=== PATIENT | female | born 1970 ===

== ENCOUNTER 2022-06-01 14:41 | Inpatient (IN) ==
[2022-06-01] MEDS ORDERED: cloNIDine 0.1 MG TABLET PO STA (16:09)
[2022-06-01] MEDS ORDERED: niCARdipine 25 MG/10 ML VIAL IV ONE (16:41)
[2022-06-01] MEDS: niCARdipine INJ 25 MG in SODIUM CHLORIDE 0.9% 240 ML IV PRN ×2 (17:23→22:04)
[2022-06-01] MEDS ORDERED: MORPHINE 2 MG/1 ML SYRINGE ONE (19:32)
[2022-06-01] MEDS ORDERED: ONDANSETRON 4 MG/2 ML VIAL ONE (19:32)
[2022-06-01] MEDS ORDERED: MORPHINE 2 MG/1 ML SYRINGE IV STA (19:33)
[2022-06-01] MEDS ORDERED: ONDANSETRON 4 MG/2 ML VIAL IV STA (19:33)
[2022-06-01 19:38] LABS: Basophils # 0.1 10*3/uL (0.0-0.2); Basophils % 0.6 % (0.0-0.8); Eosinophils # 0.1 10*3/uL (0.0-0.87); Eosinophils % 1.3 % (0.00-10.9); Hematocrit 40.8 VOL% (35.7-47.0); Immature Granulocytes % 0.2 %; Immature Granulocytes Absolute 0.02 #; Lymphocytes # 5.3 10*3/uL (1.4-4.0); Lymphocytes % 59.1 % (21.3-54.2); Mean Corpuscular HGB Conc 34.3 GM/DL (32-36); Mean Corpuscular Volume 92.9 FL (87-102); Mean Platelet Volume 11.2 FL (9.6-12.0); Monocytes # 0.4 10*3/uL (0.11-0.8); Monocytes % 4.3 % (1.7-12.7); Neutrophils % 34.5 % (38.7-73.9); Platelet Count 211 T/CUMM (130-400); Red Blood Count 4.39 MC/CUMM (3.8-5.5); Red Cell Distribution Width 12.4 % (9.3-17.3); White Blood Count 8.9 T/CUMM (4-12)
[2022-06-01 19:48] LABS: RBC,Urine <1 /HPF (0-4); Squamous Epithelial Cell,Urine Occasional /HPF (0-10)
[2022-06-01 19:50] LABS: Bilirubin,Urine Negative (Negative); Blood, Urine Trace mg/dL (Negative); Glucose,Urine (UA) Negative (Negative); Ketones,Urine Negative (Negative); Nitrite,Urine Negative (Negative); Protein,Urine 30 mg/dL (Negative); Urine Appearance Clear (Clear); Urine Color Yellow (Yellow); Urine Specific Gravity 1.015 (1.001-1.035); Urine Urobilinogen 0.2 eU/dL (<2.0)
[2022-06-01 19:58] LABS: Albumin 3.3 G/DL (3.4-5.0); Bilirubin,Total 0.8 MG/DL (0.20-1.00); Calcium 10.3 MG/DL (8.5-10.1); Osmolality,Calculated 279.5 MOS/KG (273-304); Potassium 3.3 MMOL/L (3.5-5.1); Total Protein 7.6 G/DL (6.4-8.2)
[2022-06-01 19:59] LABS: Barbiturates Screen,Urine Negative (Negative); Benzodiazepines Screen,Urine Negative (Negative); Cannabinoid Screen,Urine Negative (Negative); Opiate Screen,Urine Negative (Negative); Phencyclidine Screen,Urine Negative (Negative)
[2022-06-01 20:06] LABS: Eosinophils 3 % (0-10); Lymphocytes 53 % (20-55); Platelet Estimate Normal; Total Cells Counted 100
[2022-06-01] MEDS ORDERED: amLODIPine 5 MG TABLET PO STA (20:08)
[2022-06-01] MEDS ORDERED: hydrALAZINE 20 MG/1 ML VIAL IV STA (20:36)
[2022-06-01] MEDS ORDERED: ALBUTEROL 2.5 MG/3 ML NEB RESP TX PRN (21:26)
[2022-06-01] MEDS ORDERED: FUROSEMIDE 40 MG/4 ML VIAL IV ONE (21:37)
[2022-06-01] MEDS ORDERED: ROSUVASTATIN 10 MG TABLET PO SCH (22:00)
[2022-06-01] MEDS: ESCITALOPRAM 10 MG TABLET PO SCH (23:10)
[2022-06-01] MEDS ORDERED: POTASSIUM CHLORIDE 20 MEQ TABLET PO ONE (23:25)
[2022-06-02] MEDS: ONDANSETRON 4 MG/2 ML VIAL IV PRN ×2 (02:28→08:53)
[2022-06-02 05:10] LABS: Basophils # 0.1 10*3/uL (0.0-0.2); Basophils % 0.6 % (0.0-0.8); Eosinophils # 0.1 10*3/uL (0.0-0.87); Hematocrit 41.4 VOL% (35.7-47.0); Hemoglobin 14.1 GM/DL (12.0-16.0); Immature Granulocytes % 0.3 %; Immature Granulocytes Absolute 0.02 #; Lymphocytes # 2.6 10*3/uL (1.4-4.0); Lymphocytes % 33.5 % (21.3-54.2); Mean Corpuscular HGB Conc 34.1 GM/DL (32-36); Mean Corpuscular Volume 93.2 FL (87-102); Mean Platelet Volume 11.2 FL (9.6-12.0); Monocytes # 0.4 10*3/uL (0.11-0.8); Monocytes % 4.8 % (1.7-12.7); Neutrophils % 59.8 % (38.7-73.9); Platelet Count 218 T/CUMM (130-400); Red Blood Count 4.44 MC/CUMM (3.8-5.5); Red Cell Distribution Width 12.4 % (9.3-17.3); White Blood Count 7.7 T/CUMM (4-12)
[2022-06-02 05:39] LABS: Albumin 3.3 G/DL (3.4-5.0); Bilirubin,Total 1.1 MG/DL (0.20-1.00); Calcium 10.2 MG/DL (8.5-10.1); Osmolality,Calculated 281.7 MOS/KG (273-304); Potassium 3.6 MMOL/L (3.5-5.1); Total Protein 8.1 G/DL (6.4-8.2)
[2022-06-02] MEDS: POTASSIUM CHLORIDE 10 MEQ TABLET PO SCH (08:59)
[2022-06-02] MEDS: HydrOXYzine PAMOATE 25 MG CAPSULE PO SCH (09:00)
[2022-06-02] MEDS ORDERED: amLODIPine 10 MG TABLET PO SCH (09:00)
[2022-06-02] MEDS: cloNIDine 0.1 MG TABLET PO SCH (09:00)
[2022-06-02] MEDS: PANTOPRAZOLE 40 MG TABLET PO SCH (09:03)
[2022-06-02] MEDS: ENOXAPARIN 40 MG/0.4 ML SYRINGE SUBCUT SCH (09:05)
[2022-06-02] MEDS: hydrALAZINE 25 MG TABLET PO SCH ×2 (17:19→21:35)
[2022-06-02] MEDS ORDERED: ESCITALOPRAM OXALATE 20 MG PO SCH (21:00)
[2022-06-02] MEDS: ESCITALOPRAM 10 MG TABLET PO SCH (21:35)
[2022-06-03 05:39] LABS: Basophils % 0.6 % (0.0-0.8); Eosinophils # 0.1 10*3/uL (0.0-0.87); Eosinophils % 1.5 % (0.00-10.9); Hematocrit 41.8 VOL% (35.7-47.0); Hemoglobin 13.6 GM/DL (12.0-16.0); Lymphocytes # 3.2 10*3/uL (1.4-4.0); Lymphocytes % 45.4 % (21.3-54.2); Mean Corpuscular HGB Conc 32.5 GM/DL (32-36); Mean Corpuscular Volume 97.9 FL (87-102); Mean Platelet Volume 11.6 FL (9.6-12.0); Monocytes # 0.5 10*3/uL (0.11-0.8); Monocytes % 6.8 % (1.7-12.7); Neutrophils % 45.7 % (38.7-73.9); Platelet Count 201 T/CUMM (130-400); Red Blood Count 4.27 MC/CUMM (3.8-5.5); Red Cell Distribution Width 12.6 % (9.3-17.3); White Blood Count 7.1 T/CUMM (4-12)
[2022-06-03 06:20] LABS: Bilirubin,Total 0.9 MG/DL (0.20-1.00); Calcium 9.9 MG/DL (8.5-10.1); Osmolality,Calculated 283.5 MOS/KG (273-304); Potassium 3.4 MMOL/L (3.5-5.1); Total Protein 7.5 G/DL (6.4-8.2)
[2022-06-03] MEDS: cloNIDine 0.1 MG TABLET PO SCH ×2 (08:33→20:20)
[2022-06-03] MEDS: ROSUVASTATIN 10 MG TABLET PO SCH (08:33)
[2022-06-03] MEDS: hydrALAZINE 25 MG TABLET PO SCH ×2 (08:33→20:20)
[2022-06-03] MEDS: HydrOXYzine PAMOATE 25 MG CAPSULE PO SCH (08:33)
[2022-06-03] MEDS: PANTOPRAZOLE 40 MG TABLET PO SCH (08:33)
[2022-06-03] MEDS: POTASSIUM CHLORIDE 10 MEQ TABLET PO SCH (08:33)
[2022-06-03] MEDS: ENOXAPARIN 40 MG/0.4 ML SYRINGE SUBCUT SCH (08:36)
[2022-06-03] MEDS ORDERED: amLODIPine 10 MG TABLET PO SCH (09:00)
[2022-06-03] MEDS ORDERED: HydrOXYzine PAMOATE 50 MG CAPSULE PO SCH (09:00)
[2022-06-03] MEDS ORDERED: POTASSIUM CHLORIDE 20 MEQ TABLET PO ONE (13:00)
[2022-06-03] MEDS: predniSONE 20 MG TABLET PO SCH (14:07)
[2022-06-03] MEDS ORDERED: GLUCAGON 1 MG VIAL IM PRN (16:27)
[2022-06-03] MEDS ORDERED: DEXTROSE 10% 250 ML BAG IV PRN (16:27)
[2022-06-03] MEDS: INSULIN LISPRO 100 UNIT/ML SUBCUT SCH ×2 (16:37→20:28)
[2022-06-03] MEDS: SODIUM BICARB INJ 100 MEQ in STERILE WATER INJ 1,000 ML IV SCH (18:56)
[2022-06-03] MEDS: ESCITALOPRAM 10 MG TABLET PO SCH (20:21)
[2022-06-03] MEDS ORDERED: hydrALAZINE 25 MG TABLET PO SCH (21:00)
[2022-06-04 06:57] LABS: Basophils % 0.2 % (0.0-0.8); Hematocrit 43.6 VOL% (35.7-47.0); Hemoglobin 14.1 GM/DL (12.0-16.0); Immature Granulocytes % 0.5 %; Immature Granulocytes Absolute 0.05 #; Lymphocytes # 1.8 10*3/uL (1.4-4.0); Lymphocytes % 19.5 % (21.3-54.2); Mean Corpuscular HGB Conc 32.3 GM/DL (32-36); Mean Corpuscular Volume 96.9 FL (87-102); Mean Platelet Volume 11.6 FL (9.6-12.0); Monocytes # 0.3 10*3/uL (0.11-0.8); Monocytes % 3.3 % (1.7-12.7); Neutrophils % 76.5 % (38.7-73.9); Platelet Count 244 T/CUMM (130-400); Red Cell Distribution Width 12.3 % (9.3-17.3); White Blood Count 9.4 T/CUMM (4-12)
[2022-06-04 07:24] LABS: Albumin 2.9 G/DL (3.4-5.0); Bilirubin,Total 0.6 MG/DL (0.20-1.00); Calcium 10.9 MG/DL (8.5-10.1); Potassium 4.1 MMOL/L (3.5-5.1); Total Protein 7.9 G/DL (6.4-8.2)
[2022-06-04] MEDS: INSULIN LISPRO 100 UNIT/ML SUBCUT SCH ×4 (08:53→20:59)
[2022-06-04] MEDS: POTASSIUM CHLORIDE 10 MEQ TABLET PO SCH (08:54)
[2022-06-04] MEDS: HydrOXYzine PAMOATE 25 MG CAPSULE PO SCH (08:54)
[2022-06-04] MEDS: ROSUVASTATIN 10 MG TABLET PO SCH (08:54)
[2022-06-04] MEDS: cloNIDine 0.1 MG TABLET PO SCH ×2 (08:54→20:58)
[2022-06-04] MEDS: ENOXAPARIN 40 MG/0.4 ML SYRINGE SUBCUT SCH (08:54)
[2022-06-04] MEDS: hydrALAZINE 25 MG TABLET PO SCH ×2 (08:55→20:58)
[2022-06-04] MEDS: PANTOPRAZOLE 40 MG TABLET PO SCH (08:55)
[2022-06-04] MEDS: predniSONE 20 MG TABLET PO SCH (08:55)
[2022-06-04] MEDS: allopurinoL 100 MG TABLET PO SCH (12:23)
[2022-06-04] MEDS: SODIUM BICARB INJ 100 MEQ in STERILE WATER INJ 1,000 ML IV SCH (14:59)
[2022-06-04] MEDS ORDERED: COLCHICINE 0.6 MG CAPSULE PO ONE (19:27)
[2022-06-04] MEDS: ESCITALOPRAM 10 MG TABLET PO SCH (20:58)
[2022-06-05 05:54] LABS: Basophils % 0.2 % (0.0-0.8); Hematocrit 39.9 VOL% (35.7-47.0); Immature Granulocytes % 0.4 %; Immature Granulocytes Absolute 0.04 #; Lymphocytes # 2.5 10*3/uL (1.4-4.0); Lymphocytes % 25.4 % (21.3-54.2); Mean Corpuscular HGB Conc 32.6 GM/DL (32-36); Mean Corpuscular Volume 96.6 FL (87-102); Mean Platelet Volume 11.6 FL (9.6-12.0); Monocytes # 0.7 10*3/uL (0.11-0.8); Monocytes % 6.8 % (1.7-12.7); Neutrophils % 67.2 % (38.7-73.9); Platelet Count 225 T/CUMM (130-400); Red Blood Count 4.13 MC/CUMM (3.8-5.5); Red Cell Distribution Width 12.4 % (9.3-17.3); White Blood Count 9.7 T/CUMM (4-12)
[2022-06-05 05:59] LABS: Albumin 2.8 G/DL (3.4-5.0); Bilirubin,Total 0.4 MG/DL (0.20-1.00); Calcium 10.5 MG/DL (8.5-10.1); Total Protein 7.4 G/DL (6.4-8.2)
[2022-06-05] MEDS: POTASSIUM CHLORIDE 10 MEQ TABLET PO SCH (09:15)
[2022-06-05] MEDS: hydrALAZINE 25 MG TABLET PO SCH (09:16)
[2022-06-05] MEDS: PANTOPRAZOLE 40 MG TABLET PO SCH (09:16)
[2022-06-05] MEDS: ROSUVASTATIN 10 MG TABLET PO SCH (09:16)
[2022-06-05] MEDS: allopurinoL 100 MG TABLET PO SCH (09:16)
[2022-06-05] MEDS: COLCHICINE 0.6 MG CAPSULE PO SCH (09:16)
[2022-06-05] MEDS: cloNIDine 0.1 MG TABLET PO SCH (09:16)
[2022-06-05] MEDS: predniSONE 20 MG TABLET PO SCH (09:19)
[2022-06-05] MEDS: ENOXAPARIN 40 MG/0.4 ML SYRINGE SUBCUT SCH (09:19)
[2022-06-05] MEDS: INSULIN LISPRO 100 UNIT/ML SUBCUT SCH ×4 (09:20→21:47)
[2022-06-05] MEDS: HydrOXYzine PAMOATE 25 MG CAPSULE PO SCH (12:05)
[2022-06-05] MEDS: POLYETHYLENE GLYCOL POWDER 17 GM PACK PO SCH ×2 (12:05→20:51)
[2022-06-05] MEDS: DOCUSATE SODIUM 100 MG CAPSULE PO SCH ×2 (12:05→20:51)
[2022-06-05] MEDS: SODIUM BICARB INJ 100 MEQ in STERILE WATER INJ 1,000 ML IV SCH ×2 (12:06→21:47)
[2022-06-05] MEDS: glipiZIDE 5 MG TABLET PO SCH (16:43)
[2022-06-05] MEDS: ESCITALOPRAM 10 MG TABLET PO SCH (20:51)
[2022-06-06] MEDS: INSULIN LISPRO 100 UNIT/ML SUBCUT SCH ×4 (07:13→21:28)
[2022-06-06] MEDS: COLCHICINE 0.6 MG CAPSULE PO SCH (09:23)
[2022-06-06] MEDS: PANTOPRAZOLE 40 MG TABLET PO SCH (09:23)
[2022-06-06] MEDS: ENOXAPARIN 40 MG/0.4 ML SYRINGE SUBCUT SCH (09:24)
[2022-06-06] MEDS: ROSUVASTATIN 10 MG TABLET PO SCH (09:24)
[2022-06-06] MEDS: DOCUSATE SODIUM 100 MG CAPSULE PO SCH ×2 (09:24→21:28)
[2022-06-06] MEDS: HydrOXYzine PAMOATE 25 MG CAPSULE PO SCH (09:24)
[2022-06-06] MEDS: predniSONE 20 MG TABLET PO SCH (09:24)
[2022-06-06] MEDS: POTASSIUM CHLORIDE 10 MEQ TABLET PO SCH (09:24)
[2022-06-06] MEDS: allopurinoL 100 MG TABLET PO SCH (09:24)
[2022-06-06] MEDS: glipiZIDE 5 MG TABLET PO SCH ×2 (09:24→16:12)
[2022-06-06] MEDS: POLYETHYLENE GLYCOL POWDER 17 GM PACK PO SCH (09:27)
[2022-06-06] MEDS ORDERED: LINACLOTIDE 145 MCG CAPSULE PO SCH (10:30)
[2022-06-06] MEDS ORDERED: LUBIPROSTONE 24 MCG CAPSULE PO SCH (10:30)
[2022-06-06] MEDS: SODIUM BICARB INJ 100 MEQ in STERILE WATER INJ 1,000 ML IV SCH (16:12)
[2022-06-06] MEDS: ESCITALOPRAM 10 MG TABLET PO SCH (21:28)
[2022-06-07 05:48] LABS: Basophils % 0.5 % (0.0-0.8); Eosinophils % 0.5 % (0.00-10.9); Hematocrit 40.8 VOL% (35.7-47.0); Hemoglobin 13.4 GM/DL (12.0-16.0); Immature Granulocytes % 0.2 %; Immature Granulocytes Absolute 0.02 #; Lymphocytes # 3.9 10*3/uL (1.4-4.0); Lymphocytes % 44.5 % (21.3-54.2); Mean Corpuscular HGB Conc 32.8 GM/DL (32-36); Mean Corpuscular Volume 96.7 FL (87-102); Mean Platelet Volume 11.2 FL (9.6-12.0); Monocytes # 0.6 10*3/uL (0.11-0.8); Monocytes % 6.9 % (1.7-12.7); Neutrophils % 47.4 % (38.7-73.9); Platelet Count 229 T/CUMM (130-400); Red Blood Count 4.22 MC/CUMM (3.8-5.5); Red Cell Distribution Width 12.2 % (9.3-17.3); White Blood Count 8.7 T/CUMM (4-12)
[2022-06-07 05:57] LABS: Osmolality,Calculated 279.7 MOS/KG (273-304); Potassium 3.7 MMOL/L (3.5-5.1)
[2022-06-07] MEDS: INSULIN LISPRO 100 UNIT/ML SUBCUT SCH ×2 (08:04→11:22)
[2022-06-07] MEDS: glipiZIDE 5 MG TABLET PO SCH (08:30)
[2022-06-07] MEDS: allopurinoL 100 MG TABLET PO SCH (08:40)
[2022-06-07] MEDS: COLCHICINE 0.6 MG CAPSULE PO SCH (08:40)
[2022-06-07] MEDS: HydrOXYzine PAMOATE 25 MG CAPSULE PO SCH (08:41)
[2022-06-07] MEDS: PANTOPRAZOLE 40 MG TABLET PO SCH (08:42)
[2022-06-07] MEDS: DOCUSATE SODIUM 100 MG CAPSULE PO SCH (08:42)
[2022-06-07] MEDS: POTASSIUM CHLORIDE 10 MEQ TABLET PO SCH (08:42)
[2022-06-07] MEDS: ROSUVASTATIN 10 MG TABLET PO SCH (08:42)
[2022-06-07] MEDS: ENOXAPARIN 40 MG/0.4 ML SYRINGE SUBCUT SCH (08:43)
[2022-06-07] MEDS: SODIUM BICARB INJ 100 MEQ in STERILE WATER INJ 1,000 ML IV SCH ×2 (08:44→08:48)
[2022-06-07] MEDS ORDERED: POLYETHYLENE GLYCOL POWDER 17 GM PACK PO SCH (09:00)
[2022-06-07 11:30] LABS: Thyroid Stimulating Hormone 0.963 uIU/ml (0.358-3.74)
[2022-06-07 12:08] VITALS: BP 110/64
[2022-06-08] MEDS ORDERED: allopurinoL 300 MG TABLET PO SCH (09:00)
== END 2022-06-07 14:17 | disposition home or self-care (01) | DRG 305 ==
LOC: N.ED 14:41 → N.EDINP 21:26 → SUATTDRO 21:26 → N.3E 06-02 12:02
PROVIDERS: ADMIT Family Medicine; ATTEND Hospitalist